=== PATIENT | male | born 1985 | race Caucasian/White ===

== ENCOUNTER 2019-04-07 16:35 | Emergency (ER) | payer OTHER ==
[~2019-04-07] VITALS: Ht 165.1 cm; Wt 45.5 kg
--- NOTE | 2019-04-07 17:26 | REP ---
Clinical: Crush injury. Technique: AP, lateral, bilateral oblique views of the left second digit. Findings: Comminuted nondisplaced fracture of the distal phalanx/terminal tuft with overlying soft tissue swelling. Impression: Acute comminuted fracture of the distal phalanx/terminal tuft. Electronically Signed by Juan Mei MD 04/07/2019 05:17 P
[2019-04-07] MEDS ORDERED: LIDOCAINE 1% MDV 20ML VIAL IM ONE (18:15)
[2019-04-07 18:48] VITALS: BP 132/78
[2019-04-07] MEDS ORDERED: CEPHALEXIN 500 MG CAP PO ONE (19:00)
[2019-04-07] MEDS ORDERED: ceFAZolin SOD 2 GM in IV 1 EA IV ONE (19:00)
[2019-04-07] MEDS ORDERED: KEFL500C17 PO (19:02)
[2019-04-07] MEDS ORDERED: IBUPROFEN 600 MG TAB PO ONE (19:15)
== END 2019-04-07 20:14 | disposition home or self-care (01) ==
LOC: M ED 16:35
DX: S62.601B Fracture of unspecified phalanx of left index finger, initial encounter for open fracture (principal); S60.122A Contusion of left index finger with damage to nail, initial encounter; W23.0XXA Caught, crushed, jammed, or pinched between moving objects, initial encounter; Y92.410 Unspecified street and highway as the place of occurrence of the external cause; Y93.9 Activity, unspecified; Y99.9 Unspecified external cause status; F17.200 Nicotine dependence, unspecified, uncomplicated
CPT/HCPCS: 11740; 12001; 73140; 96360; 99284; J0690